=== PATIENT | female | born 1980 | race Caucasian/White ===

== ENCOUNTER 2022-04-26 22:10 | Emergency (ER) | payer OTHER ==
[~2022-04-26] VITALS: Ht 160 cm; Wt 50.3 kg
[~2022-04-26 22:10] MED LIST: AMOXICILLIN500 MG PO; AMPHETAMINE SALT5 MG PO; CEFPODOXIME PR200 MG PO; CITALOPRAM HBR40 MG PO; CLONIDINE HCL0.1 MG PO; DEXTROAMP-AMPHET5 MG PO; DOXYCYCLINE HY100 MG PO; HYDROCODON-ACE1 EAC8 PO; IBU600 MG PO; IBUPROFEN400 MG PO; IBUPROFEN600 MG PO; MULTIPLE VITAM1 EAC2 PO; NORCO 5-325 TA1 EACH PO; PAXLOVID CO-PA1 EAC1 PO; PENICILLIN V P250 MG PO; PENICILLIN V P500 MG PO; TYLENOL EXTRA500 MG PO; TYLENOL325 MG PO
--- OUTSIDE RECORDS SUMMARY | 2022-04-26 22:12 | XMS ---
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 [place] has no Care Guidelines for this patient. [facility] (12 MO.) [facility] NOTE: Visits indicate total known visits. ED/C VISIT TRACKING (12 MO.) [facility] COMPLAINT: - FLANK PAIN 04/17/2022 19:[address] [facility] [place] TYPE: Emergency COMPLAINT: - SHORTNESS OF BREATH DIAGNOSES: - Tubulo-interstitial nephritis, not specified as acute or chronic - Other snf (current) drug therapy - Nicotine dependence, unspecified, uncomplicated - Fever, unspecified - COVID-19 INPATIENT VISIT TRACKING (12 MO.) No inpatient visits to display in this time frame [email or web address]
== END 2022-04-27 00:37 | disposition home or self-care (01) ==
LOC: ED 22:10
DX: R10.9 Unspecified abdominal pain (principal); F17.200 Nicotine dependence, unspecified, uncomplicated; Z79.899 Other long term (current) drug therapy
CPT/HCPCS: 36415; 74176; 80053; 81001; 84703; 85025; 99284-25

== ENCOUNTER 2025-08-01 11:06 | Emergency (ER) | payer MEDICAID ==
[~2025-08-01] VITALS: Ht 160 cm; Wt 55.0 kg
[2025-08-01] MEDS ORDERED: ALPRAZOLAM2 MG PO (11:24)
[2025-08-01] MEDS ORDERED: IBUPROFEN 600 MG TAB PO ONE (11:30)
[2025-08-01] MEDS ORDERED: ACETAMINOPHEN 500 MG TAB PO ONE (11:30)
[2025-08-01 12:38] VITALS: BP 90/65
== END 2025-08-01 12:39 | disposition home or self-care (01) ==
LOC: ED 11:06
DX: M79.645 Pain in left finger(s) (principal); F17.200 Nicotine dependence, unspecified, uncomplicated; Z88.5 Allergy status to narcotic agent; Z79.899 Other long term (current) drug therapy
CPT/HCPCS: 73130; 99284; A9270

== ENCOUNTER 2025-08-24 09:58 | Emergency (ER) | payer MEDICAID ==
[~2025-08-24] VITALS: Ht 160 cm; Wt 56.0 kg
[~2025-08-24 09:58] MED LIST changes: +ALPRAZOLAM2 MG PO
--- OUTSIDE RECORDS SUMMARY | 2025-08-24 10:05 | XMS ---
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 Tristan VISIT COUNT (12 MO.) [address] T[address] 4 NOTE: Visits indicate total known visits. ED/C VISIT TRACKING (12 MO.) 08/24/2025 09:58 [facility] [place] TYPE: Emergency COMPLAINT: - BACK PAIN 08/05/2025 19:11 [facility] TYPE: Emergency DIAGNOSES: - Arm Pain 08/03/2025 05:56 [facility] TYPE: Emergency DIAGNOSES: - Radiculopathy, cervical region - Arm Pain - numbness, pain in fingers on left hand, insomnia 08/01/2025 11:[address] [facility] [place] TYPE: Emergency COMPLAINT: - LEFT FINGER PAIN DIAGNOSES: - Allergy status to narcotic agent - Anesthesia of skin - Nicotine dependence, unspecified, uncomplicated - Other intermediate frame tender (current) drug therapy - Pain in left finger(s) INPATIENT VISIT TRACKING (12 MO.) No inpatient visits to display in this time frame [email or web address]
[2025-08-24] MEDS ORDERED: NAPROXEN375 MG PO (10:21)
[2025-08-24] MEDS ORDERED: GABAPENTIN100 MG PO (10:21)
[2025-08-24 11:08] VITALS: BP 90/66
== END 2025-08-24 11:09 | disposition home or self-care (01) ==
LOC: ED 09:58
DX: M54.2 Cervicalgia (principal); F17.200 Nicotine dependence, unspecified, uncomplicated
CPT/HCPCS: 20552; 99283-25

== ENCOUNTER 2025-09-03 17:49 | Emergency (ER) | payer MEDICAID ==
[~2025-09-03] VITALS: Ht 160 cm; Wt 60.2 kg
--- OUTSIDE RECORDS SUMMARY | ~2025-09-03 | XMS | Continuity of Care Document ---
Demographics + + + | Address | [address] | | | [place] [address] | + + + | Preferred Language | Unknown | + + + | Marital Status | | + + + | Taoism Affiliation | Unknown | + + + | Race | White | + + + | Ethnic Group | Not or | + + + Author + + + | Author | [facility] | + + + | Organization | [facility] | + + + | Address | [address] | | | [place] [address] | + + + | Phone | | + + + Care Team Providers + + + + | Care Corporate Director Of Pharmacy Name | Role | Phone | + + + + Unavailable | Unavailable | + + + + Unavailable | Unavailable | + + + + Allergies and Intolerances + + + + + + | date | description | facility | reaction | severity | + + + + + + | 2025-08-01 | Tramadol | [facility] - | Rash | Moderate | | 00:00 | | [facility] | | | + + + + + + | 2025-08-01 | Tramadol | [facility] - | Rash | Moderate | | 00:00 | | [facility] | | | + + + + + + | 2025-08-01 | Tramadol | [facility] - | Rash | Moderate | | 00:00 | | [facility] | | | + + + + + + Encounters No information. Functional Status No information. Immunizations No information. Medications + + + + | date | description | facility | + + + + | (no date) | ALPRAZOLAM | [facility] | | | [facility] | + + + + | (no date) | I[facility]PROFEN [facility] | | | [facility] | + + + + | (no date) | NAPROXEN [facility] | | | [facility] | + + + + | (no date) | ACETAMINOPHEN | [facility] | | | | [facility] | + + + + | (no date) | CITALOPRAM HYDROBROMIDE | [facility] | | | | [facility] | + + + + | (no date) | GABAPENTIN | [facility] | | | | [facility] | + + + + | (no date) | ACETAMINOPHEN | [facility] | | | | [facility] | + + + + | (no date) | AMPHET ASP/AMPHET/D-AMPHET | [facility] | | | | [facility] | + + + + Problems + + + + | date | description | facility | + + + + | 2025-08-01 00:00 | Pain of finger of left | [facility] | | | hand | [facility] | + + + + | 2025-08-24 00:00 | Neck pain | [facility] | | | | [facility] | + + + + Procedures No information. Results/Labs No information. Social History +--------+ + + | date | description | facility | +--------+ + + Vital Signs + + + +---------+ | date | measurement | value | units | + + + +---------+ | 2025-08-01 00:00 | BMI | 21.5 | kg/m2 | + + + +---------+ | 2025-08-01 00:00 | BP_diastolic | 65 | mmHg | + + + +---------+ | 2025-08-01 00:00 | BP_systolic | 90 | mmHg | + + + +---------+ | 2025-08-01 00:00 | heart_rate | 68 | /min | + + + +---------+ | 2025-08-01 00:00 | height_metric | 160.02 | cm | + + + +---------+ | 2025-08-01 00:00 | height_standard | 63 | in | + + + +---------+ | 2025-08-01 00:00 | o2_saturation | 99 | % | + + + +---------+ | 2025-08-01 00:00 | respiration_rate | 16 | /min | + + + +---------+ | 2025-08-01 00:00 | | 98.3 | F | | | temperature_standar | | | | | d | | | + + + +---------+ | 2025-08-01 00:00 | weight_metric | 55.001 | kg | + + + +---------+ | 2025-08-01 00:00 | weight_standard | 121.256 | lb | + + + +---------+ | 2025-08-24 00:00 | BMI | 21.9 | kg/m2 | + + + +---------+ | 2025-08-24 00:00 | BP_diastolic | 66 | mmHg | + + + +---------+ | 2025-08-24 00:00 | BP_systolic | 90 | mmHg | + + + +---------+ | 2025-08-24 00:00 | heart_rate | 81 | /min | + + + +---------+ | 2025-08-24 00:00 | height_metric | 160.02 | cm | + + + +---------+ | 2025-08-24 00:00 | height_standard | 63 | in | + + + +---------+ | 2025-08-24 00:00 | o2_saturation | 100 | % | + + + +---------+ | 2025-08-24 00:00 | respiration_rate | 16 | /min | + + + +---------+ | 2025-08-24 00:00 | | 97.7 | F | | | temperature_standar | | | | | d | | | + + + +---------+ | 2025-08-24 00:00 | weight_metric | 55.999 | kg | + + + +---------+ | 2025-08-24 00:00 | weight_standard | 123.456 | lb | + + + +---------+"
[~2025-09-03 17:49] MED LIST changes: +GABAPENTIN100 MG PO; +NAPROXEN375 MG PO
--- OUTSIDE RECORDS SUMMARY | 2025-09-03 17:56 | XMS ---
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 Tristan VISIT COUNT (12 MO.) [address] T[address] 5 NOTE: Visits indicate total known visits. ED/C VISIT TRACKING (12 MO.) 09/03/2025 17:50 [facility] [place] TYPE: Emergency COMPLAINT: - REFILL MEDICATION 08/24/2025 09:58 [facility] [place] TYPE: Emergency COMPLAINT: - BACK PAIN DIAGNOSES: - Cervicalgia - Nicotine dependence, unspecified, uncomplicated 08/05/2025 19:11 [facility] TYPE: Emergency DIAGNOSES: - [facility] DIAGNOSES: - Radiculopathy, cervical region - Arm Pain - numbness, pain in fingers on left hand, insomnia 08/01/2025 11:07 [facility] [place] TYPE: Emergency COMPLAINT: - LEFT FINGER PAIN DIAGNOSES: - Allergy status to narcotic agent - Anesthesia of skin - Nicotine dependence, unspecified, uncomplicated - Other detention (current) drug therapy - Pain in left finger(s) INPATIENT VISIT TRACKING (12 MO.) No inpatient visits to display in this time frame [id number]
[2025-09-03] MEDS ORDERED: SEROQUEL100 MG PO ×2 (18:43→19:43)
[2025-09-03] MEDS ORDERED: TRAZODONE HCL100 MG PO ×2 (18:43→19:43)
[2025-09-03] MEDS ORDERED: CITALOPRAM HBR40 MG PO (19:43)
[2025-09-03] MEDS ORDERED: LIDOCAINE HCL 4% 1 EACH PATCH TD ONE (19:45)
[2025-09-03 19:57] VITALS: BP 106/65
[2025-09-03] MEDS ORDERED: LIDOCAINE PATCH REMOVAL 1 EA TD SCH (21:00)
== END 2025-09-03 19:55 | disposition home or self-care (01) ==
LOC: ED 17:49
DX: M25.511 Pain in right shoulder (principal); Z76.0 Encounter for issue of repeat prescription
CPT/HCPCS: 99281; A9270